=== PATIENT | male | born 1955 | race Caucasian/White ===

== ENCOUNTER → 2018-06-09 05:59 | Outpatient (CLI) | payer SELFPAY, OTHER ==
--- NOTE | 2018-06-09 06:08 | CT_ITS ---
STUDY: CT ABDOMEN AND PELVIS WITH CONTRAST REASON FOR EXAM: Male, 62 years old. 3 month history of worsening left lower quadrant pain. The patient is status post left nephrectomy and partial colectomy for renal and colon cancer. RADIATION DOSAGE (If Supplied By Facility): CTDIvol = ( 16.31 ) mGy, DLP = ( 1025.87 ) mGycm TECHNIQUE: Transaxial images were obtained from the dome of the diaphragm to the symphysis pubis with oral contrast. 75CC ml of Isovue 300 contrast was administered. Sagittal and coronal images were reconstructed. Individualized dose optimization techniques were used for this CT. COMPARISON: None. FINDINGS: The visualized lung bases are unremarkable. The visualized portions of the heart are within normal limits. There is a 1.8 cm x 2.1 cm cyst in the right lobe of the liver. Decreased attenuation of the liver in keeping with the fatty infiltration. Normal gallbladder and extrahepatic biliary system. Normal spleen. Normal pancreas. Normal bilateral adrenal glands. Normal right kidney. The patient is status post left nephrectomy. Normal visualized stomach. Normal small intestine. Normal colon. The patient is status post appendectomy. There is scattered atherosclerotic calcification of the abdominal aorta, without a demonstrated aneurysm. Normal inferior vena cava. Normal retroperitoneum. Normal urinary bladder. There are prostatic calcifications. The prostate measures 3.7 cm x 5.1 cm. Small left hydrocele. Normal abdominal wall. 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 CT/Abdomen/Pelvis WITH Contrast IMPRESSION: Fatty infiltration of the liver. There is a 1.8 cm x 2.1 cm cyst in the right lobe of the liver. Electronically Signed: Solomon Purdy MD at 15:51 EST Tel [phone], Service support ,
--- OUTSIDE RECORDS SUMMARY | 2018-09-10 16:18 | XMS RPT_ITS ---
:1955 Author Organization [facility] Care Team Providers Name Role Phone DEON PECK MD Attending Unavailable DEON PECK MD Primary Care Unavailable DEON PECK MD Attending Unavailable DEON PECK MD Primary Care Unavailable ANKUSH MCKEON MD Attending Unavailable DEON PECK MD Primary Care Unavailable RICHARD ANDINO Attending Unavailable RICHARD ANDINO Referring Unavailable RICHARD ANDINO Primary Care Unavailable RICHARD ANDINO Consulting Unavailable PROBLEMS PROBLEMS No Problem Records FoundPROCEDURES PROCEDURES No Procedure Records FoundRESULTS RESULTS PSA Collected: 06/26/2018 Status: F Source: [facility] 6:14 AM [facility] REPOSITORY TYPE CODE TESTS RESULT OUT OF REFERENCE UNITS RANGE LAB PSA(LOINC) 0.00-4.00 ng/mL Prostate 1.02 Specific Antigen Performed By: #### PSA #### [address] [address] CBC Collected: 06/26/2018 Status: F Source: [facility] 6:13 AM [facility] REPOSITORY TYPE CODE TESTS RESULT OUT OF REFERENCE UNITS RANGE LAB WBC(LOINC) 4.60-10.80 10 3/mcL WBC 5.20 LAB RBCCT(LOINC 4.04-6.13 10 6/mcL ) RBC 5.36 LAB HGB(LOINC) 14.0-18.0 G/dL Hgb 17.6 LAB HCT(LOINC) 42.0-52.0 % Hct 50.9 LAB MCV(LOINC) 80.0-94.0 fL High MCV 94.9 LAB MCH(LOINC) 27.0-31.2 pg High MCH 32.9 LAB MCHC(LOINC) 31.8-35.4 G/dL MCHC 34.6 LAB RDW(LOINC) 11.5-14.5 % RDW 13.2 LAB PLT(LOINC) 130-400 10 3/mcL Platelet 185 LAB MPV(LOINC) 7.4-10.4 fL MPV 8.2 Performed By: #### CBCLETICIA ANEU #### [address] [address] #### HFP #### [place] [address] .AUTO DIFF Collected: 06/26/2018 Status: F Source: [facility] 6:13 AM [facility] REPOSITORY TYPE CODE TESTS RESULT OUT OF REFERENCE UNITS RANGE LAB CARLYN(LOINC) 37.0-80.0 % Neutrophil % 50.0 LAB LYM(LOINC) 10.0-50.0 % Lymphocyte % 38.5 LAB MON(LOINC) 1.7-13.0 % Monocyte % 9.3 LAB EO(LOINC) 0.0-7.0 % Eosinophil % 1.7 LAB BAS(LOINC) 0.0-2.5 % Basophil % 0.5 LAB ABLYM(LOIN 0.77-3.85 10 3/mcL C) Lymphocyte, 2.00 Absolute LAB HUSSEIN(LOINC 0.15-1.00 10 3/mcL ) Monocyte, 0.50 Absolute LAB AEOS(LOINC 0.00-0.40 10 3/mcL ) Eosinophil, 0.10 Absolute LAB ABAS(LOINC 0.00-0.19 10 3/mcL ) Basophil, 0.00 Absolute Performed By: #### CBC ADIFF, ANEU #### [address] [address] #### HFP #### [address] [address] .NEUABS Collected: 06/26/2018 Status: F Source: [facility] 6:13 AM [facility] REPOSITORY TYPE CODE TESTS RESULT OUT OF REFERENCE UNITS RANGE LAB ANEU(LOINC) 2.85-6.16 10 3/mcL Low Neutrophil, 2.60 Absolute Performed By: #### LETICIA APONTE, ANEU #### [place] [address] #### HFP #### [address] [address] HFP Collected: 06/26/2018 Status: F Source: [facility] 6:13 AM [facility] REPOSITORY TYPE CODE TESTS RESULT OUT OF REFERENCE UNITS RANGE LAB PROT(LOINC) 6.4-8.2 G/dL Total Protein 7.1 LAB ALB(LOINC) 3.4-4.8 G/dL Albumin Level 3.9 LAB GLB(LOINC) G/dL Globulin 3.2 LAB AG(LOINC) 1.1-2.5 ratio A/G Ratio 1.2 LAB BILT(LOINC) 0.2-1.0 mg/dL Bili Total 0.6 LAB BILAD(LOINC 0.0-0.2 mg/dL ) Bili Direct 0.1 LAB BILI(LOINC) mg/dL Bili Indirect 0.5 Result Comment: Calculated by Rule LAB AP(LOINC) 40-135 U/L Alk Phos 51 LAB AST(LOINC) 10-40 U/L AST/SGOT 20 LAB ALT(LOINC) 10-35 U/L High ALT/SGPT 36 Performed By: #### CBC, ADIFF, ANEU #### [place] [id number] #### HFP #### [facility] [address] [place] [address] ABDOMEN/PELVIS WITH Observed: 06/09/2018 Status: F Source: [facility] 6:08 AM [facility] REPOSITORY [facility] Imaging Services [address] [place] [address] Abdomen/Pelvis WITH Contrast MR#: [id number] Acct: [id number] Name: YEIMI GEORGE Rep #: [id number] : 1955 M 62 From: Solomon Purdy MD PCP: OUT OF TOWN DOCTOR Status: REG CLI Study: Abdomen/Pelvis WITH Contrast Date of Exam: 06/09/18 Exam# [id number] Ordering Dr: DEON PECK STUDY: CT ABDOMEN AND PELVIS WITH CONTRAST REASON FOR EXAM: Male, 62 years old. 3 month history of worsening left lower quadrant pain. The patient is status post left nephrectomy and partial colectomy for renal and colon cancer. RADIATION DOSAGE (If Supplied By Facility): CTDIvol = ( 16.31 ) mGy, DLP = ( 1025.87 ) mGycm TECHNIQUE: Transaxial images were obtained from the dome of the diaphragm to the symphysis pubis with oral contrast. 75CC ml of Isovue 300 contrast was administered. Sagittal and coronal images were reconstructed. Individualized dose optimization techniques were used for this CT. COMPARISON: None. FINDINGS: The visualized lung bases are unremarkable. The visualized portions of the heart are within normal limits. There is a 1.8 cm x 2.1 cm cyst in the right lobe of the liver. Decreased attenuation of the liver in keeping with the fatty infiltration. Normal gallbladder and extrahepatic biliary system. Normal spleen. Normal pancreas. Normal bilateral adrenal glands. Normal right kidney. The patient is status post left nephrectomy. Normal visualized stomach. Normal small intestine. Normal colon. The patient is status post appendectomy. There is scattered atherosclerotic calcification of the abdominal aorta, without a demonstrated aneurysm. Normal inferior vena cava. Normal retroperitoneum. Normal urinary bladder. There are prostatic calcifications. The prostate measures 3.7 cm x 5.1 cm. Small left hydrocele. Normal abdominal wall. 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 CT/Abdomen/Pelvis WITH Contrast IMPRESSION: Fatty infiltration of the liver. There is a 1.8 cm x 2.1 cm cyst in the right lobe of the liver. Electronically Signed: Solomon Purdy MD at 15:51 EST Tel [phone], Service support , CC: OUT OF TOWN DOCTOR; DEON PECK Cloud Engagement Partner: Signed ALLERGIES ALLERGIES No Allergies Records FoundENCOUNTERS ENCOUNTERS ADMIT/DISCHARGE ACCOUNT NUMBER ADMITTING ENCOUNTER LOCATION SOURCE CLASS 06/26/2018/06/26/19 [id number] Ambulatory BBuilding:[facility] [address] Repository 06/26/2018/06/26/19 [id number] Ambulatory BBuilding:[facility] [address] Repository 06/09/2018 [id number] Ambulatory [facility] ding:CT Repository 05/27/2018 [id number] Ambulatory BBuilding: [facility] Repository PAYERS PAYERS ENCOUNTER GUARANTOR PAYER SUBSCRIBER SOURCE 06/26/2018 YEIMI Thacker [facility] YODERDOB: Insurance:SELF PAY YODERDOB: [facility] INSCOPolicy Number: [id number] Repository [place] Effective 0 [place] [place] [facility] Date:2018-06-26 [facility] [place] [address]Lqm: [id number] Name:[place], [place] [address]Kcs: () () () 06/26/2018 YEIMI Thacker [facility] YODERDOB: Insurance:SELF PAY YODERDOB: [facility] INSC[employer]olicy Number: [id number] Repository [place] Effective 0 [place] Date:2018-06-26 - [place] [address]Two: 2014-10-50Woso Name:HOME [place] [id number]: () (HP) () 06/09/2018 YEIMI Thacker Primary Insurance:[facility] YEIMI Haas [id number] [facility]ALT [facility] PLANPolicy YODERDOB: [facility] Number: [id number] [id number] Rep[place] , [place] [address]Moz: Date:2018-06-02 () 06/09/2018 Secondary YEIMI Haas Insurance:BAILEYAXEL HOBSONB: [facility] Number: [id number] [id number] Repository Date:2018-06-02 06/09/2018 Tertiary NOT GIVENGUY Haas Insurance:SELF PAY [facility] Number: Effective Repository Date:2018-06-02
== END ==
DX: R10.32 Left lower quadrant pain (principal)
CPT/HCPCS: 74177; Q9967

== ENCOUNTER 2022-12-19 08:15 | Emergency (ER) | payer OTHER, SELFPAY ==
--- NOTE | 2022-12-19 08:24 | RAD_ITS ---
STUDY: X-RAY CHEST REASON FOR EXAM: Male, 67 years old. Syncope TECHNIQUE: Single AP portable view of the chest. COMPARISON: None. FINDINGS: EKG electrodes are seen. The lungs are clear and expanded. There is no demonstrated pleural abnormality. Normal size heart. Normal mediastinum and jose. Normal visualized pulmonary arteries. There is atherosclerotic tortuosity of the aortic arch and descending thoracic aorta. Normal visualized thoracic spine. Normal visualized ribs, clavicles, and shoulders. There is no demonstrated abnormality of the visualized soft tissue structures of the upper abdomen. RAD/Chest 1 View (Portable) IMPRESSION: Normal x-ray examination of the chest. Electronically Signed: Solomon Purdy MD at 9:39 EDT ,
--- NOTE | 2022-12-19 08:24 | CT_ITS ---
STUDY: CT BRAIN WITHOUT CONTRAST REASON FOR EXAM: Male, 67 years old. Head injury due to syncopal episode. RADIATION DOSAGE (If Supplied By Facility): CTDIvol = ( 44.99 ) mGy, DLP = ( 812.98 ) mGycm TECHNIQUE: Transaxial CT imaging of the brain was performed without administration of intravenous contrast material. Individualized dose optimization techniques were used for this CT. COMPARISON: No relevant priors. FINDINGS: Normal soft tissue structures. Normal calvarium. There is mild cerebral atrophy with widening of the extra-axial spaces and ventricular dilatation. Normal white matter tracts of the cerebral hemispheres. Normal basal ganglia and thalami. Normal brainstem. Normal cerebellum. There is no intracranial hemorrhage. There are no findings of an acute ischemic infarction. Atherosclerotic plaque formation of the cavernous portions of the internal carotid arteries bilaterally. Ectasia of the cavernous portion of the left internal carotid artery as well as the basilar tip. Normal visualized paranasal sinuses. CT/Brain/Head without Contrast IMPRESSION: Chronic involutional changes of the brain. Electronically Signed: Solomon Purdy MD at 9:34 EDT ,
--- NOTE | 2022-12-19 08:24 | EKG12_ITS ---
Test Reason : SYNCOPE Blood Pressure : / mmHG Vent. Rate : 070 BPM Atrial Rate : 070 BPM P-R Int : 152 ms QRS Dur : 086 ms QT Int : 404 ms P-R-T Axes : -08 003 008 degrees QTc Int : 436 ms Normal sinus rhythm Normal ECG Confirmed by CAITLIN IBARRA, FLORENCIO ([id number]), commercial production editor RUDOLPH CULP ([id number]) on 12/20/2022 10:38:42 AM Referred By: RAMONA Confirmed By:FLORENCIO TUCKER MD
--- NOTE | 2022-12-19 08:24 | CT_ITS ---
STUDY: CT CERVICAL SPINE WITHOUT CONTRAST REASON FOR EXAM: Male, 67 years old. Polytrauma due to a fall. RADIATION DOSAGE (If Supplied By Facility): CTDIvol = ( 28.82 ) mGy, DLP = ( 581.17 ) mGycm TECHNIQUE: High resolution transaxial imaging was performed without contrast material. Sagittal and coronal images were reconstructed. Individualized dose optimization techniques were used for this CT. COMPARISON: None FINDINGS: Normal craniovertebral junction. There are degenerative changes of the anterior atlantoaxial articulation. Normal odontoid process. There is straightening of the normal cervical lordosis. Normal vertebral bodies and posterior osseous elements. C2-3: Facet joint osteoarthritis and hypertrophy on the left side. No significant stenosis seen. C3-4: Minimal anterior listhesis of C3 on C4 due to the facet joint osteoarthritis and hypertrophy. Uncovertebral arthrosis. Mild degree of bilateral neural foraminal stenosis. C4-5: Facet joint osteoarthritis and hypertrophy much more worse on the right side. Uncovertebral arthrosis. Right neural foraminal stenosis. C5-6: Marked degree of disc space narrowing. Spondylosis. Uncovertebral arthrosis. Bilateral neural foraminal stenosis. C6-7: Marked degree of disc space narrowing and spondylosis. Facet joint osteoarthritis. C7-T1: Normal endplates. Normal disc height and morphology. Normal central canal and intervertebral neuroforamina. Normal visualized soft tissue structures. CT/Spine Cervical without Contras IMPRESSION: Multilevel degenerative changes, as described above. Electronically Signed: Solomon Purdy MD at 9:48 EDT ,
[2022-12-19 08:25] VITALS: BP 143/117; PULSE 72; RESP 18; TEMP 36.1; O2SAT 97; BMI 32.0
--- NOTE | 2022-12-19 08:25 | NURSING ---
NO OLD EKGS
[2022-12-19 08:35] LABS: Absolute Lymphocyte Count 3.75 X10^3/uL (0.83-4.51); Absolute Neutrophil Count 2.9 X10^3/uL (2.0-7.7); Basophil# 0.03 X10^3/uL; Basophil% 0.4 % (0-1); Eosinophil# 0.09 X10^3/uL; Eosinophils% 1.2 % (0-5); Hematocrit 51.5 % (40-54); Hemoglobin 18.3 g/dL (13.0-16.5); Lymphocyte # 3.75 X10^3/ul (0.83-4.51); Mean Corp Hgb Conc 35.5 g/dL (32-36); Mean Corpuscular Volume 92.8 fL (80-94); Mean Platelet Vol. 9.9 fl (6.2-12.0); Monocyte% 8.2 % (0-10); NRBC Flagged by Analyzer 0 % (0-5); Neutrophil # 2.86 X10^3/uL (2.7-7.7); Neutrophil % 38.8 % (47-70); Platelet Count 198 K/mm3 (150-450); RBC Distribution Width CV 12.1 % (11.6-14.6); RBC Distribution Width SD 41.8 fl (35.1-43.9); Red Blood Count 5.55 M/mm3 (4.6-6.2); White Blood Count 7.4 K/mm3 (4.4-11.0)
[2022-12-19 08:39] LABS: Differential Indicated SCAN CRITERIA MET
--- NOTE | 2022-12-19 08:44 | EX.ED.DYSGE1 ---
HPI History of Present Illness Chief Complaint: Syncope Informant: patient and EMS Narrative Narrative: Patient presenting by EMS from the workshop for reported unresponsive episode concerning for syncope. 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 He bandaged his middle finger on the right side due to a sore. He states he saw things go black then awakening with people calling his name. Denied any prodromal chest pains or shortness of breath. Knee went down on a concrete floor. Denies headache or neck pain. Denies anticoagulation medicines. Denies any current symptoms. He states intermittent loose stools none recently this is normal for him. No recent antibiotics. Denies abdominal pain. Denies urinary symptoms. Denies nausea or vomiting. Denies history of similar. EMS there is no postictal period. Blood glucose 105. Prior similar symptoms: No PFSH PFSH Home Medications NK 12/19/22 [History Last Taken Unknown] Allergy/AdvReac Type Severity Reaction Status Date / Time No Known Allergies Allergy Verified 12/19/22 08:29 Social History Smoking Status: Never smoker ROS ROS ED Constitutional Constitutional ED: Denies chills, fever(s) or sweats Eyes Eyes: Denies change in vision ENT ENT ED: Denies dysphagia or sore throat Cardiovascular Cardiovascular: Denies chest pain, leg edema, palpitations or racing heartbeat Respiratory/Chest Respiratory/Chest: Denies cough, dyspnea or dyspnea on exertion Gastrointestinal Gastrointestinal: Denies abdominal pain, diarrhea, nausea or vomiting Genitourinary Genitourinary ED: Denies dysuria, hematuria or urinary frequency Musculoskeletal Musculoskeletal: Denies back pain, extremity pain or neck pain Integumentary Denies rash or wounds Neurologic Neurologic: Denies headache(s), paresthesias or weakness EXAM Physical Exam Const Vital Signs: 12/19/22 08:25 12/19/22 09:38 12/19/22 10:28 Temperature 96.9 F L Temperature Source Temporal Pulse Rate 72 67 Respiratory Rate 18 18 Blood Pressure 143/117 H 123/79 H Blood Pressure Mean 125 93 Pulse Ox 97 88 95 Oxygen Delivery Method Room Air Room Air Room Air Positive well nourished and well developed Constitutional Narrative: GCS 15. General Appearance ED: well developed and NAD HEENT Reports TM's clear and moist mucous membranes HEENT Narrative: No tongue lacerations or abrasions. No hemotympanums. normocephalic and atraumatic Tympanic Membrane ED: Yes TM's clear Eyes PERRL, EOMs intact bilaterally and conjunctivae normal General Eye ED: Yes normal appearance of both eyes Neck no lymphadenopathy and supple General: Negative for tenderness Chest Wall Chest: Negative for tenderness Resp normal respiratory effort and normal air movement Effort and Inspection: symmetric chest movement; Negative for respiratory distress Cardio regular rate, regular rhythm and no murmurs Peripheral Pulses: pulses 2+ throughout GI normal to inspection, nondistended, normoactive bowel sounds and non-tender Palpation: Negative for guarding or rebound tenderness present Back/Spine no CVA tenderness and no thoracic nor lumbar tenderness Extremity normal to inspection General Extremety ED: Negative for edema or tenderness General Extremity: Negative for edema Neuro oriented x3, CN's II-XII intact bilaterally and no sensory deficits noted Sensorium / Orientation: awake and alert Skin no rashes or lesions noted and no wounds MDM MDM MDM Narrative Medical decision making narrative: Interventions / MDM: Differential diagnosis: Syncope, intracranial hemorrhage, cardiac dysrhythmia Diagnosis considered but do not suspect: No reported seizure activity. Pulmonary embolism however D-dimer negative. My EKG interpretation: Sinus rate of 70, no ST or T wave changes QTc 436. No delta waves. Imaging independently reviewed and interpreted by myself: CT brain/cervical spine: No intracranial hemorrhage, no fractures, lower cervical degenerative changes noted.. Also she appears. 1 view chest x-ray: No acute process External documents reviewed: N/A Test considered but not ordered: CTA chest rule out PE however D-dimer is negative. ED course: Patient no focal deficits. No postictal reported seizure activity. Found on the ground concrete floor. Trauma scans head and neck obtained and negative. EKG with no acute findings. Laboratory studies ordered. Labs hemoglobin 18 he has no smoking history. Secondary to this D-dimer obtain which was negative. Troponin negative. Patient was nauseated over the CT scan was given Zofran with improvement of symptoms. 0940: Reported pulse ox down to 88% he has no cough D-dimer negative chest x-ray negative. He was sleeping when this was happening per spouse does have sleep apnea. He is placed on 2 L at this time. 1150: Repeat troponin negative. He is taken off oxygen and ambulated pulse ox 94% no respiratory distress. No return of symptoms. Patient set up with a 48-hour Holter monitor this time concerns for a vasovagal episode with prolonged standing. He will follow-up with his PCP with strict return precautions. All questions answered. Re-evaluation: stable Disposition discussed with patient/family/significant other: Patient and significant other Case discussed with consulting clinician: N/A This note was generated with [employer] dictation software. It may contain incorrect words, spelling, and punctuation that were not noted in checking the note before signing. Lab Data Attestation: I reviewed the patient's lab results. Labs: Laboratory Results - last 24 hr 12/19/22 12/19/22 08:20 10:35 WBC 7.4 RBC 5.55 Hgb 18.3 H* Hct 51.5 MCV 92.8 MCH 33.0 H MCHC 35.5 RDW Std Deviation 41.8 RDW Coeff of Jorge 12.1 Plt Count 198 MPV 9.9 Immature Gran % (Auto) 0.400 Neut % (Auto) 38.8 L Lymph % (Auto) 51.0 H Glascock % (Auto) 8.2 Eos % (Auto) 1.2 Baso % (Auto) 0.4 Absolute Neuts (auto) 2.9 Absolute Lymphs (auto) 3.75 Nucleated RBC % 0 Diff Path Review May foll D-Dimer Quant (PE/DVT) 0.43 Sodium 139 Potassium 3.7 Chloride 108 H Carbon Dioxide 22.0 Anion Gap 9 BUN 20 H Creatinine 1.21 Estim Creat Clear Calc 52.94 Est GFR (MDRD) Af Amer 77 Est GFR (MDRD) Non-Af 64 BUN/Creatinine Ratio 16.5 Glucose 108 H Calcium 10.1 Troponin I High Sens 50 44 Radiography Diagnostic Testing: Clinical Impression(s) from Imaging Studies Brain CT 12/19/22 08:24 IMPRESSION: Chronic involutional changes of the brain. Electronically Signed: Solomon Purdy MD at 9:34 EDT , Cervical Spine CT 12/19/22 08:24 IMPRESSION: Multilevel degenerative changes, as described above. Electronically Signed: Solomon Purdy MD at 9:48 EDT , Chest X-Ray 12/19/22 08:24 IMPRESSION: Normal x-ray examination of the chest. Electronically Signed: Solomon Purdy MD at 9:39 EDT , Discharge Plan Triage Chief Complaint: Syncope Other Complaint: Abd Pain ED Provider: Ismael Grace Dx/Rx/DC Orders Clinical Impression: Syncope, Fall Instructions: ED Fainting, Vagal Reaction Prescriptions: No Action NK Primary Care Provider: Care Physician,No Primary Referrals: [facility] Doctor,Out of [Non-Staff] - Activity Restrictions/Additional Instructions: Your cardiac work-up negative scans your head neck are negative. Chest x-ray normal. You are set up with a 48-hour monitor. You will follow-up with your doctor. Return if worsening symptoms. Disposition Disposition: Home, Self Care
[2022-12-19 08:56] LABS: Anion Gap 9 (5-15); BUN 20 mg/dL (7-18); BUN/Creat Ratio 16.5 RATIO (10-20); Calcium,Total 10.1 mg/dL (8.5-10.1); Chloride 108 mmol/L (98-107); Creatinine, Serum 1.21 mg/dL (0.70-1.30); EST Glomerular Filtration Rate 64 mL/min (>60); Est Glom Filt Rate - Afr Amer 77 mL/min (>60); Estimated Creatinine Clearance 52.94 ml/min; Glucose 108 mg/dL (74-106); Potassium 3.7 mmol/L (3.5-5.1); Sodium Level 139 mmol/L (136-145); Troponin-I HS (w/2H Reflex) 50 pg/mL (3.0-78.0)
[2022-12-19] MEDS: Ondansetron 4 MG/2 ML Vial IV (09:13)
[2022-12-19 09:27] LABS: D-Dimer Quantitative (DVT/PE) 0.43 FEU/ug/m (0.27-0.49)
[2022-12-19 09:38] VITALS: O2SAT 88
[2022-12-19 10:28] VITALS: BP 123/79; PULSE 67; RESP 18; O2SAT 95
[2022-12-19 10:31] LABS: Reflex Troponin-HS? (from REC) Y
[2022-12-19 10:33] VITALS: O2SAT 97
[2022-12-19 11:06] LABS: Troponin-I HS 44 pg/mL (3.0-78.0)
[2022-12-19 11:29] VITALS: O2SAT 97
[2022-12-19 12:25] VITALS: BP 126/84; PULSE 67; RESP 16; O2SAT 97
[2022-12-20 13:19] LABS: Pathologist Review Reviewed
== END 2022-12-19 12:29 | disposition home or self-care (01) ==
PROVIDERS: Emergency Provider Emergency Medicine; Visit Provider Emergency Medicine
DX: R55 Syncope and collapse (principal); R11.0 Nausea
CPT/HCPCS: 36415; 70450; 71045; 72125; 80048; 84484; 85025; 85379; 93005; 96361; 96374; 99285; A4216; J2405

== ENCOUNTER → 2022-12-19 | Outpatient (CLI) | payer OTHER, SELFPAY | END | disposition home or self-care (01) | PROVIDERS: PCP Family Medicine; Visit Provider Emergency Medicine | DX: R55 Syncope and collapse (principal) | CPT/HCPCS: 93225; 93226 ==